=== PATIENT | female | born 1955 | race Caucasian/White ===

== ENCOUNTER → 2016-12-06 | Outpatient (CLI) | payer OTHER ==
[~2016-12-06] MED LIST: CYCL-259 PO; DIAZ10TA PO; IBUP-1222 PO; TRAM50TA2 PO
== END | disposition home or self-care (01) ==
LOC: CFH 14:33
PROVIDERS: ATTEND Nurse Practitioner Women's Health
DX: Z12.31 Encounter for screening mammogram for malignant neoplasm of breast (principal)
CPT/HCPCS: G0202

== ENCOUNTER → 2020-05-28 | Outpatient (CLI) | payer MEDICARE ==
[~2020-05-28] MED LIST changes: -CYCL-259 PO; +CYCL10TA2 PO
== END | disposition home or self-care (01) ==
LOC: CFH 11:45
PROVIDERS: ATTEND Obstetrics & Gynecology Gynecology
DX: N88.8 Other specified noninflammatory disorders of cervix uteri (principal); R92.2 Inconclusive mammogram; N64.4 Mastodynia; Z80.41 Family history of malignant neoplasm of ovary; Z80.49 Family history of malignant neoplasm of other genital organs
CPT/HCPCS: 76830; 77062; 77066; G0279